=== PATIENT | male | born 1950 | race Caucasian/White ===

== ENCOUNTER → 2018-09-14 | Outpatient (CLI) | payer OTHER ==
[~2018-09-14] MED LIST: ASPIR 8181 MG PO; FOLIC ACID1 MG PO; LIPITOR10 MG PO; PLAVIX 75 MG TA75 MG PO; SINGULAIR 10 MG10 M1 PO; SYNTHROID200 MCG PO
[2018-09-14 09:34] LABS: ABSOLUTE NEUTROPHILS 3.1 thou/uL (1.4-8.2); BASOPHILS 0.4 % (0.0-2.0); HEMATOCRIT 38.5 % (42.0-52.0); HEMOGLOBIN 13.4 gm/dL (14.0-18.0); LYMPHOCYTES 17.7 % (24.0-44.0); MCH 32.9 pg (26.0-34.0); MCHC 34.8 g/dL (28.0-37.0); MCV 94.7 fL (80.0-100.0); MONOCYTES 10.6 % (1.0-8.0); PLATELET COUNT 93 thou/uL (150-400); POLYS 68.3 % (36.0-66.0); RBC 4.06 mil/uL (4.50-6.00); RDW 13.1 % (10.5-14.5); WBC 4.5 thou/uL (4.0-11.0)
[2018-09-14 09:46] LABS: ALBUMIN 3.5 g/dL (3.4-5.0); ANION GAP 6 mmol/L (7-16); BUN 18 mg/dL (7-18); CALCIUM 8.2 mg/dL (8.5-10.1); CHLORIDE 107 mmol/L (98-107); CO2 29 mmol/L (21-32); CREATININE 1.1 mg/dL (0.7-1.3); GLUCOSE 95 mg/dL (74-106); SGOT 22 U/L (15-37); SGPT 28 U/L (30-65); SODIUM 142 mmol/L (136-145); TOTAL BILIRUBIN 0.5 mg/dL (<0.1-1.0); TOTAL PROTEIN 6.5 g/dL (6.4-8.2)
== END ==
LOC: ULTRA 09:06
PROVIDERS: Specialist
DX: R10.11 Right upper quadrant pain (principal)

== ENCOUNTER → 2018-09-15 | Outpatient (CLI) | payer OTHER ==
[~2018-09-15] VITALS: Ht 182.9 cm; Wt 88.5 kg
--- NOTE | ~2018-09-15 | P ---
[facility] [place] [address] [place] [address] PROCEDURE REPORT Name: JASON GAMBOA Room #: REG ALEX Cooper.#: [id number] Admission: 09/15/18 Attend Phys: Candelario Arboleda MD Discharge: Date of : 46 Report #: [id number] THIS REPORT FOR: //name// CC: Candelario Mccord DO Physician staff BRIEF HISTORY: The patient is a 68-year-old male with recurring right upper quadrant pain. He also has intermittent solid food dysphagia. PREOPERATIVE DIAGNOSIS: Abdominal pain and solid food dysphagia. POSTOPERATIVE DIAGNOSES: 1. Grade A erosive esophagitis. 2. Erosive antral gastritis. 3. Bulbar duodenitis. 4. Small hiatus hernia. 5. Intermittently seen Schatzki ring. MEDICATIONS: Deep sedation with propofol per anesthesia. SPECIMEN: Biopsies of gastritis. ESTIMATED BLOOD LOSS: 3 mL. PROCEDURE: EGD with biopsy, Pacheco dilation. FINDINGS: Prior to propofol sedation, the procedure of upper endoscopy discussed with the patient as well as potential risks and its complications. He indicates he understands and desires to proceed. DESCRIPTION OF PROCEDURE: With the patient in left decubitus position, the Olympus video endoscope was inserted in the cervical esophagus under direct vision without difficulty. Examination of this organ through its entire length revealed normal esophageal mucosa down the squamocolumnar junction. Squamocolumnar junction was intact. Several tiny erosions were seen consistent with grade A erosive esophagitis. Intermittently, a small hiatus hernia was seen. The mucosa and the hernia was normal. Scope was advanced into the stomach, which was examined on end view as well as retroflexed views. There were erosions in the antrum. No ulcers were seen. On retroflexion, no mass lesions were seen. Due to the erosive changes, multiple biopsies were obtained. The pylorus is unremarkable. Examination of duodenal bulb revealed nonerosive bulbar duodenitis. The duodenal sweep down in the third portion was unremarkable. At that point, the scope was slowly withdrawn and careful circumferential views confirmed the above finding. The patient tolerated the procedure well. [facility] [address] [place] [address] PROCEDURE REPORT Name: JASON GAMBOA Room #: REG [facility] Luba#: [id number] Admission: 09/15/18 Attend Phys: Candelario Arboleda MD Discharge: Date of : 46 Report #: [id number] Following procedure, he was dilated with passage of 50-[place] Pacheco dilator. There was no resistance. CONDITION OF THE PATIENT UPON DISCHARGE: Following procedure, the patient was drowsy, arousable, conversant and will be discharged home when fully ambulatory. INSTRUCTIONS TO THE PATIENT AND FAMILY AT THE TIME OF DISCHARGE: He clearly has an erosive esophagitis as well as erosions of the antrum of the stomach. We will follow up on biopsies obtained today. If there is evidence of H. pylori, he may benefit from antibiotic treatment. At this point in time, we will place him on omeprazole 20 mg daily for 6 weeks, then he may use on an as needed basis. His ring was dilated. He is to return on an as needed basis for dilation of the esophagus due to recurrent dysphagia. By: [id number] Candelario Arboleda MD /nt
--- NOTE | ~2018-09-15 | PATH ---
[facility] [place] [address] PATHOLOGY RPT PROCEDURE Name: JASON GOODWIN Room #: REG ALEX Kenneth.#: [id number] Admission: 09/15/18 Date of : 46 Discharge: Report #: [id number] Path Case #: [id number] [facility] Accession Number: [id number] . 01 Material submitted: . PART A: GASTRITIS R/O H PYLORI BIOPSY PART B: POLYP AT HEPATIC FLEXURE PART C: POLYP PROXIMAL ASCENDING COLON X2 PART D: POLYP PROXIMAL TRANSVERSE COLON PART E: COLON POLYP 50CM . 01 Clinical history: . Pre-OP DX: Screening, abdominal pain right upper quadrant, dysphagia Post-OP DX: Erosive gastritis, duodenitis, esophagitis, diverticulosis, Schatzki's ring, colon polyps, internal hemorrhoids . 02 Diagnosis: A. Gastric mucosa, gastritis R/O H. pylori, endoscopic biopsy: - Mild reactive gastropathy. - Negative for intestinal metaplasia or atrophy. - Negative for Helicobacter pylori (properly controlled immunohistochemical stain performed). . B. Polyp, hepatic flexure, endoscopic biopsy: - Tubular adenoma. - Negative for high-grade dysplasia. . C. Polyp x2, proximal ascending colon polyp, endoscopic biopsy: - Tubular adenoma identified in multiple fragments sampled. - Negative for high-grade dysplasia. . D. Polyp, proximal transverse colon, endoscopic biopsy: - Compatible with a hyperplastic polyp. - Negative for dysplasia. . E. Polyp, colon polyp 50 cm, endoscopic biopsy: - Compatible with a hyperplastic polyp and a lymphoid aggregate. - Negative for dysplasia. (IUV:muriel; 09/16/2018) QMS/09/16/2018 . 02 Electronically signed: . Michelle Jimenez MD, Pathologist NPI- [id number] . 01 Gross description: . A. Received in formalin labeled "Jason Goodwin, gastritis[place] [address] PATHOLOGY RPT PROCEDURE Name: JASON GOODWIN [id number] Admission: 09/15/18 Date of : 46 Discharge: Report #: [id number] Path Case #: [id number] pylori," are multiple segments of rowan soft tissue measuring 1.5 x 0.5 x 0.1 cm in aggregate dimensions. The specimen is filtered and entirely submitted in cassette A1. . B. Received in formalin labeled "Jason Goodwin, polyp hepatic flexure," is a single segment of rowan soft tissue measuring 0.8 cm in maximum dimension. The specimen is entirely submitted in cassette B1. . C. Received in formalin labeled "Jason Goodwin, polyp proximal ascending colon x2," are multiple segments of rowan soft tissue measuring 1.3 x 0.6 x 0.2 cm in aggregate dimensions. The specimen is filtered and entirely submitted in cassette C1. . D. Received in formalin labeled "Jason Goodwin, polyp proximal transverse colon," is a single segment of rowan soft tissue measuring 0.3 cm in maximum dimension. The specimen is entirely submitted in cassette D1. . E. Received in formalin labeled "Jason Goodwin, colon polyp at 50 cm," is a single segment of rowan soft tissue measuring 0.5 cm in maximum dimension. The specimen is entirely submitted in cassette E1. (TSD; 09/15/2018) TOB/TOB . 02 Microscopic: . . . 02 Pathologist provided ICD-10: D12.3, D12.2, K31.9, K63.5 . 02 CPT . 070629, 308466, 707641, 815471, 115544, [id number] Specimen Comment: A courtesy copy of this report has been sent to Specimen Comment: [phone]. Specimen Comment: Report sent to Performed at: [address], [place] [id number] MD Collin Gallardo MD Phone: [phone] Performed at: [address] [id number] MD Michelle Jimenez MD Phone: [phone]
--- NOTE | ~2018-09-15 | P ---
[facility] [place] [address] [address] PROCEDURE REPORT Name: JASON GAMBOA [id number] Admission: 09/15/18 Attend Phys: Candelario Arboleda MD Discharge: Date of : 46 Report #: [id number] THIS REPORT FOR: //name// CC: Candelario Mccord MD Physician staff DATE OF SERVICE: 09/15/2018 BRIEF HISTORY: The patient is a 68-year-old male, for average risk screening colonoscopy. PREOPERATIVE DIAGNOSIS: Average risk screening colonoscopy. POSTOPERATIVE DIAGNOSES: 1. Multiple colon polyps. 2. Moderate to severe sigmoid diverticulosis coli. 3. Small internal hemorrhoids. MEDICATIONS: Deep sedation with propofol per anesthesia. SPECIMENS: 1. Hepatic flexure polyp. 2. Proximal ascending colon polyps x 2. 3. Paroxysmal transverse colon polyp. 4. Polyp at 50 cm. ESTIMATED BLOOD LOSS: 3 mL PROCEDURE: Colonoscopy to cecum and terminal ileum with snare polypectomy and biopsy. FINDINGS: Prior to propofol sedation, procedure of colonoscopy was discussed with the patient as well as potential risks and its complications. He indicates he understands and desires to proceed. DESCRIPTION OF PROCEDURE: With the patient in left lateral decubitus position, digital examination was completed, which revealed no abnormalities. Subsequently, the Olympus video colonoscope was introduced in the rectum, advanced under direct vision to the cecum. Done with minimal difficulty. The cecum was identified by the ileocecal valve and the appendiceal orifice. I was able to visualize the distal segment of terminal ileum, which was inspected and noted to be unremarkable. At that point, the scope was slowly withdrawn and careful circumferential views obtained including retroflexion of the scope in the ascending colon. Upon slow withdrawal of the scope, the prep was good. [facility] [address] [place] [address] PROCEDURE REPORT Name: JASON GAMBOA Room #: REG [facility] Kenneth.#: [id number] Admission: 09/15/18 Attend Phys: Candelario Arboleda MD Discharge: Date of : 46 Report #: [id number] mucosa was within normal limits, normal vascular pattern, normal light reflex. As we withdrew the scope, number of polyps were identified. In the proximal ascending colon, 2 polyps were seen, one was a flat polyp that was about 4-5 mm in width and about 8-10 mm in length. It was removed by snare polypectomy and cleaned up with biopsy forceps. In addition, at that level was a diminutive polyp removed with biopsy forceps. At the level of the hepatic flexure, a 5 x 5 mm sessile polyp was seen and removed by cold snare polypectomy. In the proximal transverse colon, a diminutive polyp was seen and removed by biopsy. In the distal descending colon at 50 cm, another diminutive polyp was seen and removed by biopsy. Inspection of the sigmoid colon revealed moderate to severe diverticular disease without endoscopic evidence of diverticulitis. Scope was withdrawn in the rectum. Upon retroflexion, small hemorrhoids were seen. Scope was withdrawn. The patient tolerated the procedure well. CONDITION OF THE PATIENT UPON DISCHARGE: Following procedure, the patient was drowsy, arousable. He will be discharged to home when fully ambulatory. INSTRUCTIONS TO THE PATIENT AND FAMILY AT THE TIME OF DISCHARGE: The patient had multiple polyps as noted above. We will follow up on the pathology. If 3 or more polyps are adenomas, he should return in 3 years; if only 1 or 2 adenomas, then 5 years to be indicated. If none are adenomas, which is unlikely, 10 years would be indicated. He will return to the care of Dr. Mccord and will return to see me as needed. His last colonoscopy was in 2000. Withdrawal time from the cecum including the multiple polypectomies was 26 minutes. By: [id number] Candelario Arboleda MD /yun
== END | disposition home or self-care (01) ==
LOC: GI 09:32
DX: Z12.11 Encounter for screening for malignant neoplasm of colon (principal); K57.30 Diverticulosis of large intestine without perforation or abscess without bleeding; K64.8 Other hemorrhoids; D12.3 Benign neoplasm of transverse colon; D12.2 Benign neoplasm of ascending colon; K63.5 Polyp of colon; K20.8 Other esophagitis; K31.9 Disease of stomach and duodenum, unspecified; K29.50 Unspecified chronic gastritis without bleeding; K29.80 Duodenitis without bleeding; K44.9 Diaphragmatic hernia without obstruction or gangrene; K22.2 Esophageal obstruction; K25.9 Gastric ulcer, unspecified as acute or chronic, without hemorrhage or perforation; I25.2 Old myocardial infarction; I48.91 Unspecified atrial fibrillation; E78.00 Pure hypercholesterolemia, unspecified; Z88.8 Allergy status to other drugs, medicaments and biological substances; Z79.899 Other long term (current) drug therapy; Z79.82 Long term (current) use of aspirin; Z95.5 Presence of coronary angioplasty implant and graft; Z90.89 Acquired absence of other organs
CPT/HCPCS: 62110; 62900